=== PATIENT | female | born 2000 | race Caucasian/White ===

== ENCOUNTER 2019-02-19 15:49 | Day surgery (SDC) | payer OTHER ==
--- NOTE | 2019-02-19 07:42 | HPN ---
Date/Time of Note Date/Time of Note DATE: 02/19/19 TIME: 07:42 Interval H&P Admission Note Pt. seen H&P reviewed: No system changes YAMILET BECKER MD Feb 19, 2019 07:42
[2019-02-22] MEDS ORDERED: PROPOFOL 20 ML ONE (14:19)
[2019-02-22] MEDS ORDERED: LIDOCAINE 1% (MDV) 20 ML INJ ONE (14:20)
[2019-02-22] MEDS ORDERED: MIDAZOLAM 1 MG/ML 2 ML INJ ONE (14:20)
[2019-02-22] MEDS ORDERED: ROPIVACAINE 0.5 % 30 ML VIAL ONE (14:23)
[2019-02-22] MEDS ORDERED: ROPIVACAINE 0.2% 20 ML VIAL ONE (14:24)
[2019-02-22] MEDS ORDERED: ONDANSETRON 4 MG INJ ONE (14:53)
[2019-02-22] MEDS ORDERED: CEFAZOLIN 1 GM INJ ONE (14:53)
[2019-02-22] MEDS ORDERED: KETOROLAC 30 MG INJ ONE (16:53)
[2019-02-22] MEDS ORDERED: SUGAMMADEX SODIUM 200 MG/2 ML VIAL IV ONE (16:53)
== END 2019-02-19 16:20 | disposition home or self-care (01) ==
LOC: SDS 15:49
PROVIDERS: ATTEND Orthopaedic Surgery
DX: S92.141D Displaced dome fracture of right talus, subsequent encounter for fracture with routine healing (principal); W10.9XXD Fall (on) (from) unspecified stairs and steps, subsequent encounter; Z53.8 Procedure and treatment not carried out for other reasons

== ENCOUNTER 2019-02-22 12:24 | Day surgery (SDC) | payer OTHER ==
[2019-02-21 16:23] VITALS: BMI 34.3
[~2019-02-22] VITALS: Ht 180.3 cm; Wt 123.2 kg
[2019-02-22] VITALS (12 sets, daily range): BP systolic 124–158; BP diastolic 74–89; PULSE 74–98; RESP 15–23; Ht 180.3 cm; Wt 123.2 kg
--- NOTE | 2019-02-22 07:17 | HPN ---
Date/Time of Note Date/Time of Note DATE: 02/22/19 TIME: 07:16 Interval H&P Admission Note Pt. seen H&P reviewed: No system changes YAMILET BECKER MD Feb 22, 2019 07:17
[2019-02-22] MEDS ORDERED: LACTATED RINGER'S 1,000 ML IV SCH (14:00)
--- NOTE | 2019-02-22 14:16 | PREAC ---
Date/Time of Note Date/Time of Note DATE: 02/22/19 TIME: 14:16 Anesthesia Eval and Record Evaluation Time Pre-Procedure Interview DATE: 02/22/19 TIME: 14:16 Age 18 Sex female NPO: 8 hrs Preoperative diagnosis ankle injury Planned procedure ankle arthroscopy Past Medical History Past Medical History: Includes GI: Obesity Surgery & Anesthesia Issues No known issue Meds Anticoagulation: No Beta Iraj within 24 hr: No Reason Beta Iraj not given: Pt. not on B-Iraj No Active Prescriptions or Reported Meds Current Medications Lactated Ringer's 1,000 ml @ 25 mls/hr Q24H IV ; Start 02/22/19 at 14:00 Meds reviewed: Yes Allergies Coded Allergies: No Known Drug Allergies (Verified Allergy, Unknown, 02/22/19) Allergies Reviewed: Yes Labs/Studies Labs Reviewed: Reviewed by anesthesiologist test: Negative Pre-procedure Exam Last vitals Vital Signs Date Temp Pulse Resp B/P (MAP) Pulse Ox O2 O2 Flow FiO2 Time Delivery Rate 02/22/19 98.6 75 16 124/79 97 Room Air 13:30 (94) Airway: Adequate mouth opening, Adequate thyromental dist Mallampati: Mallampati IV Teeth: Normal Lung: Normal Heart: Normal ASA Physical Status ASA physical status: 2 Emergency: None Pre-operative Attestations Prior to commencing anesthesia and surgery, the patient was re-evaluated, there was verification of: *The patient's identity *The results of appropriate recent lab work and preoperative vital signs *The above evaluation not changing prior to induction *Anesthetic plan, risk benefits, alternative and complications discussed with patient/family; questions answered; patient/family understands, accepts and wishes to proceed. JANET EM DO Feb 22, 2019 14:16
[2019-02-22] MEDS ORDERED: DEXAMETHASONE 4 MG/ML 5 ML INJ ONE (14:19)
[2019-02-22] MEDS ORDERED: ROCURONIUM 50 MG INJ ONE (14:19)
[2019-02-22] MEDS ORDERED: POLYMYXIN/BACITRACIN 1L IRRIG ONE (14:30)
[2019-02-22] MEDS ORDERED: OXYCODONE/ACETAMINOPHEN (5/325) TAB PO PRN ×2 (14:30)
[2019-02-22] MEDS ORDERED: HYDROmorphONE 1 MG/5 ML IV SYRINGE IV PRN ×3 (14:30)
[2019-02-22] MEDS ORDERED: CA CHLORIDE 10% 10 ML SYRINGE ONE (14:32)
[2019-02-22] MEDS ORDERED: HEPARIN 1000 UNITS/ML 10 ML INJ ONE (14:32)
[2019-02-22] MEDS ORDERED: THROMBIN 5000 UNIT (RECOTHROM) VIAL ONE (14:32)
--- NOTE | 2019-02-22 17:14 | PAC ---
Date/Time of Note Date/Time of Note DATE: 02/22/19 TIME: 17:13 Post-Anesthesia Notes Post-Anesthesia Note Last documented vital signs Vital Signs Date Temp Pulse Resp B/P (MAP) Pulse Ox O2 O2 Flow FiO2 Time Delivery Rate 02/22/19 98.0 89 20 115/62 100 1713 02/22/19 75 16 124/79 97 Room Air 13:30 (94) Activity: WNL Respiratory function: WNL Cardiovascular function: WNL Mental status: Baseline Pain reasonably controlled: Yes Hydration appropriate: Yes Nausea/Vomiting absent: Yes JANET EM DO Feb 22, 2019 17:14
[2019-02-22] MEDS: ONDANSETRON 4 MG INJ IV PRN ×2 (17:16→18:13)
--- NOTE | 2019-02-22 17:24 | OPR ---
Date/Time of Note Date/Time of Note DATE: 02/22/19 TIME: 17:23 Operative Report Procedure Date: Feb 22, 2019 Preoperative Diagnosis Right ankle osteochondral fracture of the talus Postoperative Diagnosis Right ankle osteochondral fracture of the anterolateral talus Operation/Procedure Performed Right ankle arthroscopy with extensive debridement Right ankle arthroscopy with microfracture of osteochondral lesion of talus (8x3 mm) Right ankle arthroscopy with removal of loose body Right ankle open treatment of osteochondral lesion of the talus with osteochondral autograft and allograft Right ankle application of PRP Surgeon Yamilet Becker MD Elevator Service Mechanic Lio Klein DO Anesthesia Type: general, other (popliteal) Anesthesiologist: JANET EM DO Tourniquet Time: 28 min 250 mm Hg Estimated Blood Loss: minimal Transfusion none Specimen none Grafts/Implants Arthrex Osorio PRP (2% Hct) Arthrex Thrombinator Arthrex Biocartilage/Graftnet Complications none Pt Condition Post Procedure: stable Disposition: PACU Indications Patient is a 18-year-old female who sustained a right ankle fracture to the osteochondral portion of the talus. Given the displaced fracture fragment patient was indicated for surgical management. Risk Note: Patient was explained the risks and benefits of surgery and the patient's port lions language including not limited to infection, bleeding, injury to blood vessels, nerves, ligaments or tendons. Risks of anesthesia, deep vein thrombosis and need for reduce future surgery. Patient acknowledged these risk by signing the surgical consent form. Procedure Description The patient was met in the preoperative holding area, marked with the correct operative extremity confirmed with both patient and consent. The patient was then brought back in the operative theater, placed supine on operative table, given preoperative antibiotics and preoperative regional block anesthesia. The patient was then placed in the arthroscopic thigh swift with all bony prom inences well padded with a nonsterile tourniquet placed on the operative extremity. The patient was then prepped and draped in the normal sterile fashion. All parties in the room did a timeout and everyone agreed it was the correct patient, and extremity and procedure. Initial distraction was placed across the joint and the superficial peroneal nerve had been marked out prior to distraction, and using extreme caution to avoid any injury to the neurovascular structures, the anteromedial, anterolateral, and posterolateral portals were created in the standard fashion. The arthroscope was brought into the ankle and a 21-point exam was performed showing extensive hemorrhagic scar tissue and synovitis in the ankle with extensive scar tissue in both the medial, lateral, posterior and anterior gutters. Also noted was a 1.05 cm of loose body that was found in the posterior lateral aspect of the ankle, which was removed during the case. The syndesmosis was extensively debrided. The osteochondral autograft was removed from the talus and then minced on the back table and mixed with Arthrex bio cartilage and platelet rich plasma. It was then mixed in the typical fashion. At this time the osteochondral lesion of the talus that measured 8 x 3 mm was then further debrided and microfractured in the typical fashion. A mini open incision was then made with an extended portal incision over the anterior lateral portal and the bio cartilage mixed with the osteochondral autograft was then placed back into the ankle over the osteochondral lesion and then covered and coated with autologous fibrin glue. The ankle was remained distracted for approximately 8 minutes while the fibrin glue sealed. At this point the remainder of the platelet rich plasma was then injected into t he ankle after the wounds were closed with a 3-0 Monocryl and 4-0 nylon. All wounds were thoroughly irrigated and closed with 4-0 nylon in a vertical mattress fashion. All wounds were dressed with Xeroform, antibiotic ointment, 4 x 4s, 5 ABDs were placed and the patient was placed in a well-padded short leg splint. Tourniquet had been brought down prior to this and hemostasis had been achieved prior to the wound closure. The wounds were irrigated thoroughly prior to closure as well. All sponge and needle counts were correct and her toes were warm and well- perfused in the PACU. MARBLE POLISHER NOTE: There was a need for an orthopedic surgical device sales representative during this case in order to hold the limb in the proper position and assist with reduction of the osteochondral autograft. Without the use of an orthopedic radiologic technologist the case would have been extensively longer and more complex. YAMILET BECKER MD Feb 22, 2019 17:24
[2019-02-22] MEDS ORDERED: morphine 2 MG INJ IV PRN (17:30)
== END 2019-02-22 18:59 | disposition home or self-care (01) ==
LOC: SDS 12:24
PROVIDERS: ATTEND Orthopaedic Surgery
DX: S92.141D Displaced dome fracture of right talus, subsequent encounter for fracture with routine healing (principal); X58.XXXD Exposure to other specified factors, subsequent encounter
CPT/HCPCS: 29892; 29898; 82306; 84703; C1713; J1100; J1170; J2405; Z7512; Z7610; J0690; J1644; J1885; J2250; J2795; J3010